=== PATIENT | male | born 1985 | race Asian ===

== ENCOUNTER 2016-10-11 20:30 | Emergency (ER) | payer MEDICAID, OTHER ==
[~2016-10-11] VITALS: Ht 182.9 cm; Wt 73.5 kg
[2016-10-11 20:33] VITALS: BP 120/76
[2016-10-11] MEDS ORDERED: IBUPROFEN 200 MG TABLET ONE (21:26)
[2016-10-11] MEDS ORDERED: HYDROcodone/APAP 5/325 TABLET ONE (21:26)
[2016-10-11] MEDS ORDERED: HYDROcodone/APAP 5/325 TABLET PO ONE (21:30)
[2016-10-11] MEDS ORDERED: IBUPROFEN 200 MG TABLET PO ONE (21:30)
== END 2016-10-11 23:34 | disposition home or self-care (01) ==
LOC: ED 23:05
DX: S06.0X1A Concussion with loss of consciousness of 30 minutes or less, initial encounter (principal); S13.4XXA Sprain of ligaments of cervical spine, initial encounter; S23.3XXA Sprain of ligaments of thoracic spine, initial encounter; S33.5XXA Sprain of ligaments of lumbar spine, initial encounter; S20.211A Contusion of right front wall of thorax, initial encounter; S80.01XA Contusion of right knee, initial encounter; S80.02XA Contusion of left knee, initial encounter; F17.200 Nicotine dependence, unspecified, uncomplicated; Y04.0XXA Assault by unarmed brawl or fight, initial encounter; Y93.89 Activity, other specified; Y92.488 Other paved roadways as the place of occurrence of the external cause; Y99.8 Other external cause status
CPT/HCPCS: 70450; 72072; 72110; 72125; 99284

== ENCOUNTER 2017-04-14 18:33 | Emergency (ER) | payer MEDICAID, OTHER | END 2017-04-14 20:42 | disposition left against medical advice (07) | LOC: ED 20:36 | DX: Z00.8 Encounter for other general examination (principal); Z53.21 Procedure and treatment not carried out due to patient leaving prior to being seen by health care provider ==

== ENCOUNTER 2017-07-08 20:38 | Emergency (ER) | payer MEDICAID, OTHER ==
[~2017-07-08] VITALS: Ht 182.9 cm; Wt 100.0 kg
[2017-07-08] MEDS ORDERED: QUET25TA5 PO (21:20)
[2017-07-08 21:39] LABS: AMPHETAMINE SCREEN, URINE Negative (Negative); BARBITURATE SCREEN, URINE Negative (Negative); BENZODIAZEPINE SCREEN, URINE Negative (Negative); CANNABINOID SCREEN, URINE Positive (Negative); COCAINE SCREEN, URINE Negative (Negative); METHADONE SCREEN, URINE Negative (Negative); OPIATE SCREEN, URINE Negative (Negative)
[2017-07-08 21:48] LABS: BASOPHILS # (AUTO) 0.04 x10^3/uL (0-0.1); BASOPHILS % (AUTO) 0 % (0-1); EOSINOPHILS # (AUTO) 0.15 x10^3/uL (0-0.4); EOSINOPHILS % (AUTO) 1 % (1-7); LYMPHOCYTES # (AUTO) 4.19 x10^3/uL (1-3.4); LYMPHOCYTES % (AUTO) 40 % (22-44); MD NO; MEAN CORPUSCULAR VOLUME 88.2 fL (81-97); MEAN PLATELET VOLUME 6.5 fL (7.4-10.4); MONOCYTES # (AUTO) 0.49 x10^3/uL (0.2-0.8); MONOCYTES % (AUTO) 5 % (2-9); NEUTROPHILS # (AUTO) 5.75 x10^3/uL (1.8-6.8); NEUTROPHILS % (AUTO) 54 % (42-75); PLATELET COUNT 373 x10^3/uL (130-400); RED BLOOD COUNT 5.35 x10^6/uL (4.38-5.82); RED CELL DISTRIBUTION WIDTH 16.1 % (9.4-14.8)
[2017-07-08 21:59] LABS: ALBUMIN 3.9 g/dL (3.4-5.0); ANION GAP 5 mmol/L (5-15); CALCIUM 8.5 mg/dL (8.5-10.1); CHLORIDE 111 mmol/L (98-107); CREATININE 0.95 mg/dL (0.7-1.3); SALICYLATE LEVEL 5.8 mg/dL (2.8-20.0)
[2017-07-08 22:02] LABS: ACETAMINOPHEN < 2 mcg/mL (10-30)
[2017-07-09] MEDS ORDERED: ACETAMINOPHEN 325 MG TABLET ONE (04:17)
[2017-07-09 04:28] VITALS: BP 119/82
[2017-07-09] MEDS ORDERED: ACETAMINOPHEN 325 MG TABLET PO ONE (04:30)
== END 2017-07-09 04:30 | disposition home or self-care (01) ==
LOC: ED 23:51
DX: F32.0 Major depressive disorder, single episode, mild (principal); F10.20 Alcohol dependence, uncomplicated; F41.1 Generalized anxiety disorder; Z72.89 Other problems related to lifestyle; Z60.9 Problem related to social environment, unspecified; Z91.14 Patient's other noncompliance with medication regimen
CPT/HCPCS: 36415; 80048; 80307; 80329; 82040; 85025; 99284; G0480